=== PATIENT | female | born 1985 | race Caucasian/White ===

== ENCOUNTER 2019-03-01 20:24 | Emergency (ER) | payer BC ==
[2019-03-01] MEDS ORDERED: ALUM & MAG HYDROX-SIMETHICONE 30 ML, LIDOCAINE VISCOUS 2% 15 ML PO ONE ×2 (20:41)
[2019-03-01] MEDS ORDERED: SUCRALFATE 1 GM/10 ML 1 GM UD PO ONE (20:41)
--- NOTE | 2019-03-01 20:44 | ED.PDOC ---
History of Present Illness - General Chief Complaint: GI Problem Stated Complaint: mid epigastric pain, n/v Time Seen by Provider: 03/01/19 20:36 Source: patient, Vital Signs reviewed Additional Information: 33 YEAR OLD WHITE FEMALE PRESENTS TO THE ED WITH COMPLAINTS OF EPIGASTRIC PAIN FOR SEVERAL WEEKS PAIN IS AGGRAVTED BY FOOD SOMETIMES SHE GETS NAUSEA AND VOMITS LAST NIGHT HER EMESIS WAS BILIOUS SHE HAS NO HEMATEMESIS NO YULISSA SHE DOES NOT DRINK WATER ONLY DR PEPPER HISTORY OF VIRAL HEPATITIS B FROM DIRTY NEEDLE USE - History of Present Illness Timing/Duration: getting worse Severity: moderate Improving Factors: nothing Worsening Factors: nothing, other - FOOD Associated Symptoms: nausea/vomiting Allergies/Adverse Reactions: Allergies NO KNOWN ALLERGY Allergy (Verified 03/01/19 20:55) Home Medications: Ambulatory Orders Dicyclomine HCl [Bentyl] 20 mg PO Q8HRS #30 tab 03/01/19 Pantoprazole Tablet [Protonix] 40 mg PO ACBK #30 tab 03/01/19 Review of Systems - Review of Systems Constitutional: States: no symptoms reported EENTM: States: no symptoms reported Respiratory: States: no symptoms reported Cardiology: States: no symptoms reported Gastrointestinal/Abdominal: States: see HPI Genitourinary: States: no symptoms reported Musculoskeletal: States: no symptoms reported Skin: States: no symptoms reported Neurological: States: no symptoms reported Endocrine: States: no symptoms reported Hematologic/Lymphatic: States: no symptoms reported Family Medical History - Family History Father Hx Family;Other: liver disease Physical Exam - Physical Exam General Appearance: Alert Eye Exam: bilateral normal Ears, Nose, Throat: hearing grossly normal, normal ENT inspection, normal pharynx Neck: non-tender, full range of motion, supple Respiratory: chest non-tender, lungs clear, normal breath sounds, no respiratory distress, no accessory muscle use Cardiovascular/Chest: normal peripheral pulses, regular rate, rhythm, no edema, no gallop, no JVD Gastrointestinal/Abdominal: normal bowel sounds, non tender, soft, no organomegaly, no pulsatile mass Extremity: normal range of motion, non-tender, normal inspection Neurologic: finishing frame runner II-XII nml as tested, no motor/sensory deficits, alert, normal mood/affect, oriented x 3 Skin Exam: normal color Departure - Departure Clinical Impression: Abdominal pain, Vomiting, Viral hepatitis B chronic, Gastritis and duodenitis Time of Disposition: 21:33 Disposition: Discharge to Home or Self Care Condition: Good Departure Forms: ED Discharge - Pt. Copy, Patient Portal Self Enrollment Diet: bland diet Prescriptions: Dicyclomine HCl [Bentyl] 20 mg PO Q8HRS #30 tab Pantoprazole Tablet [Protonix] 40 mg PO ACBK #30 tab Home Medications: Ambulatory Orders Dicyclomine HCl [Bentyl] 20 mg PO Q8HRS #30 tab 03/01/19 Pantoprazole Tablet [Protonix] 40 mg PO ACBK #30 tab 03/01/19 Comments: PLEASE FOLLOW UP WITH YOUR PCP FOR FURTHER WORK UP IF PAIN IS RECURRENT
[2019-03-01] MEDS ORDERED: ALUM & MAG HYDROX-SIMETHICONE 30 ML UD ONE (20:56)
[2019-03-01] MEDS ORDERED: LIDOCAINE HCL 2% (MOUTH-THROAT) 15 ML UD ONE (20:56)
[2019-03-01 20:59] VITALS: BP 134/92; TEMP 99.2; O2SAT 98
== END 2019-03-01 21:40 | disposition home or self-care (01) ==
LOC: ER 20:24
DX: K52.9 Noninfective gastroenteritis and colitis, unspecified (principal); K29.70 Gastritis, unspecified, without bleeding; B18.1 Chronic viral hepatitis B without delta-agent; Z79.899 Other long term (current) drug therapy

== ENCOUNTER 2019-05-10 10:56 | Emergency (ER) | payer BC ==
--- NOTE | 2019-05-10 11:02 | ED.PDOC ---
History of Present Illness - General Chief Complaint: COOK FRUIT Problem Stated Complaint: vaginal bleeding Time Seen by Provider: 05/10/19 11:02 Source: patient Exam Limitations: no limitations - History of Present Illness Initial Comments: Tristan Dumas 33 y/o female [id number] LMP-26 March 2019 presently 6 weeks EGA by dates came to ER with vaginal bleeding and lower abdominal cramp about 3 hours ago while resting at home.Denies dizziness,weakness or passinn out. Timing/Duration: just prior to arrival, this morning Quality: moderate, cramping Onset Location: suprapubic Radiation: back Activites at Onset: rest Prior abdominal problems: none Sexual intercourse history: greater than 2 months ago, single partner Worsening Factors: nothing Associated Symptoms: other - see hpi Allergies/Adverse Reactions: Allergies NO KNOWN ALLERGY Allergy (Verified 03/01/19 20:55) Home Medications: Ambulatory Orders Dicyclomine HCl [Bentyl] 20 mg PO Q8HRS #30 tab 03/01/19 Pantoprazole Tablet [Protonix] 40 mg PO ACBK #30 tab 03/01/19 Review of Systems - Review of Systems Gastrointestinal/Abdominal: States: see HPI, other - abdominal cramps Genitourinary: States: see HPI, other - vaginal bleeding All other Systems: Reviewed and Negative, No Change from Baseline Past Medical History (General) - Patient Medical History Hx Seizures: No Hx Stroke: No Hx Dementia: No Hx Asthma: Yes Hx of COPD: No Hx Cardiac Disorders: No Hx Congestive Heart Failure: No Hx Pacemaker: No Hx Hypertension: No Hx Thyroid Disease: No Hx Diabetes: No Hx Gastroesophageal Reflux: No - liver disease Hx Renal Disease: No Hx of HIV: No 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 Hx MRSA: No Surgical History: other - c-sections - Vaccination History Hx Tetanus, Diphtheria Vaccination: Yes Hx Influenza Vaccination: Yes - Social History Hx Tobacco Use: Yes Hx Alcohol Use: No - Female History Hx Last Menstrual Period: 03/26/19 Patient : Yes - 6 wks EGA Expected Date of Delivery:: 12/31/19 Family Medical History - Family History Father Hx Family;Other: liver disease Physical Exam - Physical Exam General Appearance: Alert, Comfortable, No apparent distress Eyes, Ears, Nose, Throat Exam: normal ENT inspection Neck: normal inspection Cardiovascular/Respiratory: regular rate, rhythm, normal peripheral pulses, normal breath sounds Gastrointestinal/Abdominal: soft, tenderness - lower abdomen Pelvic Exam: speculum exam normal, no cerv. motion tender, other - cervix closed;small clotted blood cerical os Extremity: normal inspection Neurologic: alert, oriented x 3 Skin Exam: normal color, warm/dry Progress - Progress Progress: 05/10/19 12:49 Vital Signs - 8 hr 05/10/19 11:08 Temperature 99.4 F Pulse Rate [ 80 left brachial] Respiratory 16 Rate Blood Pressure 129/64 [left brachial] O2 Sat by Pulse 96 Oximetry - Results/Orders Results/Orders: 05/10/19 11:04 IV Care:Saline Lock per Protoc QSHIFT Laboratory Results - last 24 hr 05/10/19 05/10/19 05/10/19 11:19 11:19 11:19 WBC 6.1 RBC 4.51 Hgb 14.6 Hct 41.9 MCV 92.9 MCH 32.4 H MCHC 34.8 RDW 12.9 Plt Count 173 MPV 9.1 Absolute Neuts (auto) 3.60 Absolute Lymphs (auto) 1.90 Absolute Monos (auto) 0.40 Absolute Eos (auto) 0.10 Absolute Basos (auto) 0.00 Neutrophils % 59.2 Lymphocytes % 30.9 Monocytes % 7.2 Eosinophils % 2.2 Basophils % 0.5 Sodium 135 Potassium 3.7 Chloride 102 Carbon Dioxide 22 Anion Gap 14.7 BUN 7 Creatinine 0.59 L BUN/Creatinine Ratio 11.9 Random Glucose 86 Serum Osmolality 267.4 L Calcium 8.9 Total Bilirubin 1.0 AST 15 ALT 11 Alkaline Phosphatase 61 Serum Total Protein 7.5 Albumin 4.2 Globulin 3.3 Albumin/Globulin Ratio 1.3 Serum HCG, Qual Positive Beta HCG, Quant 87723.0 H Patient ABO/Rh 05/10/19 11:19 WBC RBC Hgb Hct MCV MCH MCHC RDW Plt Count MPV Absolute Neuts (auto) Absolute Lymphs (auto) Absolute Monos (auto) Absolute Eos (auto) Absolute Basos (auto) Neutrophils % Lymphocytes % Monocytes % Eosinophils % Basophils % Sodium Potassium Chloride Carbon Dioxide Anion Gap BUN Creatinine BUN/Creatinine Ratio Random Glucose Serum Osmolality Calcium Total Bilirubin AST ALT Alkaline Phosphatase Serum Total Protein Albumin Globulin Albumin/Globulin Ratio Serum HCG, Qual Beta HCG, Quant Patient ABO/Rh A POSITIVE - EKG/XRAY/CT Xray Comments: Vaginal US-small gestational sac w/ cardiac activity IUP-6 weeks;N-ad Departure - Departure Clinical Impression: Threatened in early , Vaginal bleeding affecting early , Abdominal cramping affecting , antepartum Time of Disposition: 14:12 Disposition: Discharge to Home or Self Care Condition: Fair Departure Forms: ED Discharge - Pt. Copy, Patient Portal Self Enrollment Instructions: DI for Threatened Referrals: Tamiko Guzman NP [Primary Care Provider] - 1-2 Weeks Home Medications: Ambulatory Orders Dicyclomine HCl [Bentyl] 20 mg PO Q8HRS #30 tab 03/01/19 Pantoprazole Tablet [Protonix] 40 mg PO ACBK #30 tab 03/01/19 Additional Instructions: NEED TO CALL UP YOU CELL ROOM OPERATOR FOR EARLY APPOINTMENT NATALEE;May take Tylenol-500mg one tablet every 6 hours for pain as needed';Return to emergency Room as needed;ALSO Take Vitamins one tablet daily
[2019-05-10] MEDS ORDERED: LACTATED RINGERS 1,000 ML IVS ONE (11:04)
[2019-05-10 11:15] VITALS: TEMP 99.4
--- NOTE | 2019-05-10 13:15 | US ---
EXAM DESCRIPTION: OB ,Early (0-14wks) CLINICAL HISTORY: 33 years Female, vaginal bleeding COMPARISON: None. FINDINGS: Transvaginal sonography demonstrates a uterus estimated at 9.0 x 5.0 x 5.1 cm. Anteriorly a 3.6 x 2.6 x 2.7 cm uterine leiomyoma is present. Within the endometrial cavity a echogenic gestational sac ring and sac is present with a 4 mm pole and small yolk sac evident with estimated cardiac activity at 112 bpm within the pole. A viable six week zero day gestation suspected. The right ovary is 1.5 x 2.4 x 1.7 cm and left ovary 2.7 x 1.9 x 1.7 cm. No free pelvic fluid is seen. IMPRESSION: 1. Anteverted uterus with viable small gestational sac and pole with estimated gestational age 6 weeks zero days with cardiac activity evident. 2. 3.6 cm anteriorly positioned uterine leiomyoma just anterior to the gestational sac. 3. Normal-appearing adnexa without significant free fluid or adnexal mass. Electronically signed by: Alfonso Maldonado MD 05/10/2019 1:14 PM CDT
[2019-05-10 19:37] VITALS: BP 106/66; O2SAT 98
== END 2019-05-10 14:53 | disposition home or self-care (01) ==
LOC: ER 10:56
DX: O20.0 Threatened abortion (principal); O99.89 Other specified diseases and conditions complicating pregnancy, childbirth and the puerperium; R10.9 Unspecified abdominal pain; O99.511 Diseases of the respiratory system complicating pregnancy, first trimester; J45.909 Unspecified asthma, uncomplicated; Z3A.01 Less than 8 weeks gestation of pregnancy; Z86.19 Personal history of other infectious and parasitic diseases; Z87.891 Personal history of nicotine dependence
CPT/HCPCS: 36415; 76813; 80053; 84702; 84703; 85025; 86900; 86901; J7120

== ENCOUNTER 2019-05-13 08:58 | Emergency (ER) | payer BC ==
[2019-05-13] MEDS ORDERED: SODIUM CHLORIDE 0.9% 1000ML 1,000 ML IVS ONE ×2 (09:18→10:48)
[2019-05-13] MEDS ORDERED: ONDANSETRON ODT 8 MG TAB SL ONE (09:18)
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
[2019-05-13 12:07] VITALS: BP 120/74; TEMP 98.1; O2SAT 100
== END 2019-05-13 12:06 | disposition home or self-care (01) ==
LOC: ER 08:58
DX: O21.0 Mild hyperemesis gravidarum (principal); O99.331 Smoking (tobacco) complicating pregnancy, first trimester; F17.210 Nicotine dependence, cigarettes, uncomplicated; O99.611 Diseases of the digestive system complicating pregnancy, first trimester; B19.20 Unspecified viral hepatitis C without hepatic coma; O99.511 Diseases of the respiratory system complicating pregnancy, first trimester; J45.909 Unspecified asthma, uncomplicated; Z3A.01 Less than 8 weeks gestation of pregnancy
CPT/HCPCS: 36415; 80053; 81001; 82150; 83690; 84702; 85025; J7030

== ENCOUNTER 2020-02-24 22:08 | Emergency (ER) | payer BC, OTHER ==
[2020-02-24] MEDS ORDERED: SODIUM CHLORIDE 0.9% 1000ML 1,000 ML IVS ONE (22:18)
[2020-02-24] MEDS ORDERED: ACETAMINOPHEN 500 MG TAB PO ONE (22:18)
--- NOTE | 2020-02-24 22:21 | ED.PDOC ---
History of Present Illness - General Chief Complaint: Fever Stated Complaint: fever,chills,feels dehydrated Time Seen by Provider: 02/24/20 22:09 Source: patient, RN notes reviewed, Vital Signs reviewed Additional Information: 34yo F no PMH with reported general malaise, myalgias, subjective fever, and headache for past 6 days. Reports was active and swimming the past two days, now reported has general feeling of being "dehydrated." Denies sick contacts, recent travel, cough, chest pain, SOB, n/v, diarrhea, trauma, photophobia, rash, neck pain/stiffness, or other complaints at this time. Reports she is 7wks p ost- after delivery as well, but denies vaginal bleeding, discharge, or abdominal/pelvic pain at this time. - History of Present Illness Allergies/Adverse Reactions: Allergies NO KNOWN ALLERGY Allergy (Verified 02/24/20 22:21) Home Medications: Ambulatory Orders Dicyclomine HCl [Bentyl] 20 mg PO Q8HRS #30 tab 03/01/19 Pantoprazole Tablet [Protonix] 40 mg PO ACBK #30 tab 03/01/19 Ondansetron Odt [Zofran ODT] 8 mg PO QID PRN #30 tab 05/13/19 Review of Systems - Review of Systems Constitutional: States: chills, fever, weakness EENTM: States: no symptoms reported Respiratory: States: no symptoms reported Cardiology: States: no symptoms reported Gastrointestinal/Abdominal: States: no symptoms reported Genitourinary: States: no symptoms reported Musculoskeletal: States: no symptoms reported Skin: States: no symptoms reported Neurological: States: headache All other Systems: Reviewed and Negative Past Medical History (General) - Patient Medical History Hx Seizures: No Hx Stroke: No Hx Dementia: No Hx Asthma: Yes Hx of COPD: No Hx Cardiac Disorders: No Hx Congestive Heart Failure: No Hx Pacemaker: No Hx Hypertension: No Hx Thyroid Disease: No Hx Diabetes: No Hx Gastroesophageal Reflux: No - liver disease Hx Renal Disease: No Hx of HIV: No 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 Hx MRSA: No - Vaccination History Hx Tetanus, Diphtheria Vaccination: Yes Hx Influenza Vaccination: Yes - Social History Hx Tobacco Use: Yes Hx Alcohol Use: Yes Hx Substance Use: No Hx Substance Use Treatment: No Hx Depression: No - Female History Hx Last Menstrual Period: 03/26/19 Patient : Yes - 4 weeks Expected Date of Delivery:: 12/31/19 Family Medical History - Family History Father Family History: Unknown Living Status: Still Living Hx Family;Other: liver disease Paternal Grandparents Living Status: Unknown Hx Family Cancer: Yes Physical Exam - Physical Exam General Appearance: Alert, No apparent distress, Well Developed, Well Nourished Eye Exam: bilateral normal Ears, Nose, Throat: hearing grossly normal, normal ENT inspection, normal pharynx Neck: non-tender, full range of motion, supple Respiratory: lungs clear, normal breath sounds, no respiratory distress, no accessory muscle use Cardiovascular/Chest: regular rate, rhythm, no edema, no murmur Peripheral Pulses: radial,right: 2+, radial,left: 2+ Gastrointestinal/Abdominal: normal bowel sounds, non tender, soft Back Exam: no CVA tenderness Extremity: normal range of motion, non-tender 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 Institutional screening protocol for coronavirus performed in triage. 02/24/20 23:05 Nonfocal neuro examination with no noted meningismus or objective fever. Patient is awake and alert with no signs of altered mental status. Does not clinically appear ICH, meningitis. Well-appearing, no distress, no evidence of clinical pneumonia or respiratory compromise noted on initial evaluation. Symptoms appear most consistent with viral syndrome today, and no other reported focal symptoms to indicate possible cause of subjective fever. COVID information, self-quarantine information given as well. No signs of acutely dangerous intracranial or intrathoracic infections noted at this visit. Discussed continued care at home and OTC symptomatic treatments as well. ED warnings given and outpatient f/u with PCP. 02/24/20 23:13 Departure - Departure Clinical Impression: Headache, Fatigue Time of Disposition: 23:08 Disposition: Discharge to Home or Self Care Condition: Good Departure Forms: ED Discharge - Pt. Copy, Patient Portal Self Enrollment Instructions: DI for Fever (Symptom) -- Adult, Viral Upper Respiratory Infection, Adult (DC) Diet: resume usual diet Referrals: Tamiko Guzman, EDELMIRA [Primary Care Provider] - 1-5 Days Home Medications: Ambulatory Orders Dicyclomine HCl [Bentyl] 20 mg PO Q8HRS #30 tab 03/01/19 Pantoprazole Tablet [Protonix] 40 mg PO ACBK #30 tab 03/01/19 Ondansetron Odt [Zofran ODT] 8 mg PO QID PRN #30 tab 05/13/19 Additional Instructions: If symptoms worsen, Contact your physician: 1. sudden weight gain 2. increased shortness of breath, especially when lying down 3. increased swelling in legs 4. cough that does not go away 5. tightness or pain in your chest 6. if you are having problems with your medications If you have a fever, cough or other symptoms, you might have COVID-19. Most people have mild illness and are able to recover at home. If you think you may have been exposed to COVID-19, contact your healthcare provider. Keep track of your symptoms. If you have an emergency warning sign (including trouble breathing), get emergency medical care immediately. user chat light icon Self-Spray Gun Repairer Helper A guide to help you make decisions and seek appropriate medical care. Steps to help prevent the spread of COVID-19 if you are sick If you are sick with COVID-19 or think you might have COVID-19, follow the steps below to care for yourself and to help protect other people in your home and community. Stay home except to get medical care Stay home. Most people with COVID-19 have mild illness and can recover at home without medical care. Do not leave your home, except to get medical care. Do not visit public areas. Take care of yourself. Get rest and stay hydrated. Take [id number] medicines, such as acetaminophen, to help you feel better. Stay in touch with your doctor. Call before you get medical care. Be sure to get care if you have trouble breathing, or have any other emergency warning signs, or if you think it is an emergency. Avoid public transportation, ride-sharing, or taxis. Separate yourself from other people As much as possible, stay in a specific room and away from other people and pets in your home. If possible, you should use a separate bathroom. If you need to be around other people or animals in or outside of the home, wear a cloth face covering. Additional guidance is available for those living in close quarters and shared housing. See COVID-19 and Animals if you have questions about pets. Monitor your symptoms Symptoms of COVID-19 fever, cough, or other symptoms. Follow care instructions from your healthcare provider and local health department. Your local health authorities may give instructions on checking your symptoms and reporting information. When to Seek Emergency Medical Attention Look for emergency warning signs* for COVID-19. If someone is showing any of these signs, seek emergency medical care immediately Trouble breathing Persistent pain or pressure in the chest New confusion Inability to wake or stay awake Bluish lips or face *This list is not all possible symptoms. Please call your medical provider for any other symptoms that are severe or concerning to you. Call 911 or call ahead to your local emergency facility: Notify the jig mill operator that you are seeking care for someone who has or may have COVID-19. Call ahead before visiting your doctor Call ahead. Many medical visits for routine care are being postponed or done by phone or telemedicine. If you have a medical appointment that cannot be postponed, call your doctors office, and tell them you have or may have COVID-19. This will help the office protect themselves and other patients. If you are sick wear a cloth covering over your nose and mouth You should wear a cloth face covering, over your nose and mouth if you must be around other people or animals, including pets (even at home) You dont need to wear the cloth face covering if you are alone. If you cant put on a cloth face covering (because of trouble breathing, for example), cover your coughs and sneezes in some other way. Try to stay at least 6 feet away from other people. This will help protect the people around you. Cloth face coverings should not be placed on young children under age 2 years, anyone who has trouble breathing, or anyone who is not able to remove the covering without help. Note: During the COVID-19 pandemic, medical grade facemasks are reserved for healthcare workers and some first responders. You may need to make a cloth face covering using a scarf or bandana. Cover your coughs and sneezes Cover your mouth and nose with a tissue when you cough or sneeze. Throw away used tissues in a lined trash can. Immediately wash your hands with soap and water for at least 20 seconds. If soap and water are not available, clean your hands with an alcohol-based hand pearler that contains at least 60% alcohol. Clean your hands often Wash your hands often with soap and water for at least 20 seconds. This is especially important after blowing your nose, coughing, or sneezing; going to the bathroom; and before eating or preparing food. Use hand pearler if soap and water are not available. Use an alcohol-based hand pearler with at least 60% alcohol, covering all surfaces of your hands and rubbing them together until they feel dry. Soap and water are the best option, especially if hands are visibly dirty. Avoid touching your eyes, nose, and mouth with unwashed hands. Handwashing Tips Avoid sharing personal household items Do not share dishes, drinking glasses, cups, eating utensils, towels, or bedding with other people in your home. Wash these items thoroughly after using them with soap and water or put in the meter/relay technician. Clean all high-touch surfaces everyday Clean and disinfect high-touch surfaces in your sick room and bathroom; wear disposable gloves. Let someone else clean and disinfect surfaces in common areas, but you should clean your bedroom and bathroom, if possible. If a caregiver or other person needs to clean and disinfect a sick persons bedroom or bathroom, they should do so on an as-needed basis. The caregiver/other person should wear a mask and disposable gloves prior to cleaning. They should wait as long as possible after the person who is sick has used the bathroom before coming in to clean and use the bathroom. High-touch surfaces include phones, remote controls, counters, tabletops, doorknobs, bathroom fixtures, toilets, keyboards, tablets, and bedside tables. Clean and disinfect areas that may have blood, stool, or body fluids on them. Use household alternative education teacher and disinfectants. Clean the area or item with soap and water or another detergent if it is dirty. Then, use a household disinfectant. Be sure to follow the instructions on the label to ensure safe and effective use of the product. Many products recommend keeping the surface wet for several minutes to ensure germs are killed. Many also recommend precautions such as wearing gloves and making sure you have good ventilation during use of the product. Most EPA-registered household disinfectants should be effective. A full list of disinfectants can be found here external icon . Complete Disinfection Guidance When its Safe to be Around Others After Being Sick with COVID-19 Deciding when it is safe to be around others is different for different situations. Find out when you can safely end home isolation.
[2020-02-24 22:26] VITALS: O2SAT 97
[2020-02-24 23:24] VITALS: BP 113/59; TEMP 97.8
== END 2020-02-24 23:24 | disposition home or self-care (01) ==
LOC: ER 22:08
DX: R51 Headache (principal); R50.9 Fever, unspecified; R53.83 Other fatigue; F17.200 Nicotine dependence, unspecified, uncomplicated
CPT/HCPCS: 80053; 81001; 84703; 85025; J7030

== ENCOUNTER → 2020-10-30 | Outpatient (CLI) | payer OTHER | LOC: GMA CAST 15:00 | PROVIDERS: ATTEND Family Medicine Sports Medicine | DX: R53.83 Other fatigue (principal); Z20.2 Contact with and (suspected) exposure to infections with a predominantly sexual mode of transmission; R11.0 Nausea ==